=== PATIENT | female | born 1940 | race Caucasian/White ===

== ENCOUNTER 2016-12-10 07:57 | Outpatient (CLI) | payer MEDICARE ==
[2016-12-10 08:46] LABS: HEMOGLOBIN A1C 0.62 g/dL
== END 2016-12-10 07:58 | disposition home or self-care (01) ==
LOC: LAB 07:57
PROVIDERS: ATTEND Physician Assistant Medical
DX: E11.9 Type 2 diabetes mellitus without complications (principal); Z79.899 Other long term (current) drug therapy
CPT/HCPCS: 36415; 82947; 83036

== ENCOUNTER 2017-03-21 07:40 | Outpatient (CLI) | payer MEDICARE ==
[2017-03-21 08:52] LABS: ALBUMIN/GLOBULIN RATIO 1.3 (1.0-2.2); BILIRUBIN,TOTAL 0.9 mg/dL (0.2-1.0); BUN - BLOOD UREA NITROGEN 22 mg/dL (6-20); CALCIUM 9.8 mg/dL (8.5-10.3); CARBON DIOXIDE - CO2 28 mmol/L (21-32); CHLORIDE 103 mmol/L (101-111); CHOLESTEROL 132 mg/dL; CREATININE 0.7 mg/dL (0.4-1.0); GFR - MDRD 82 (>89); GLUCOSE 109 mg/dL (70-100); HDL CHOLESTEROL 44 mg/dL; LDL/HDL RATIO 1.5 (<4.4); POTASSIUM 3.9 mmol/L (3.5-5.0); SODIUM 138 mmol/L (135-145); TRIGLYCERIDES 116 mg/dL; VLDL CHOLESTEROL 23 mg/dL
[2017-03-21 09:11] LABS: BASOPHILS % (AUTO) 0.7 %; EOSINOPHILS # (AUTO) 0.2 10^3/uL (0.0-0.7); EOSINOPHILS % (AUTO) 3.3 %; HCT - HEMATOCRIT 38.3 % (37.0-47.0); HGB - HEMOGLOBIN 12.7 g/dL (12.0-16.0); LYMPHOCYTES # (AUTO) 3.3 10^3/uL (1.5-3.5); LYMPHOCYTES % (AUTO) 49.3 %; MEAN CORPUSCULAR HEMOGLOBIN 29.2 pg (27.0-31.0); MEAN CORPUSCULAR VOLUME 88.2 fL (81.0-99.0); MEAN PLATELET VOLUME 9.3 fL (7.9-10.8); MONOCYTES # (AUTO) 0.6 10^3/uL (0.0-1.0); NEUTROPHILS # (AUTO) 2.5 10^3/uL (1.5-6.6); NEUTROPHILS % (AUTO) 37.7 %; RED BLOOD COUNT 4.34 10^6/uL (4.20-5.40); RED CELL DISTRIBUTION WIDTH 14.4 % (12.0-15.0); UNCORRECTED WHITE BLOOD COUNT 6.7 x10^3/uL; WHITE BLOOD COUNT 6.7 x10^3/uL (4.8-10.8)
[2017-03-21 09:18] LABS: HEMOGLOBIN A1C 0.58 g/dL
== END 2017-03-21 07:41 | disposition home or self-care (01) ==
LOC: LAB 07:40
PROVIDERS: ATTEND Physician Assistant Medical
DX: E55.9 Vitamin D deficiency, unspecified (principal); Z79.899 Other long term (current) drug therapy; E11.9 Type 2 diabetes mellitus without complications; E83.52 Hypercalcemia; E78.5 Hyperlipidemia, unspecified; I10 Essential (primary) hypertension
CPT/HCPCS: 36415; 80053; 80061; 82306; 83036; 84443; 85025

== ENCOUNTER 2017-04-09 10:29 | Outpatient (CLI) | payer MEDICARE ==
--- NOTE | 2017-04-10 14:03 | Mammography Report ---
DIGITAL SCREENING MAMMOGRAM: 04/09/2017 CLINICAL INDICATION: A 76-year-old nulliparous patient with family history of breast cancer, history of benign left breast biopsy, for screening. COMPARISON: 03/2016, 03/2015, 03/2014, 03/2013, 03/2012, 03/2010. TECHNIQUE: Routine CC and MLO projections were obtained of the breasts. FINDINGS: The breasts again demonstrate heterogeneously dense fibroglandular parenchyma bilaterally. Coarse and punctate, typically benign calcifications are present. No suspicious masses, clustered mi crocalcifications, or regions of architectural distortion are identified. IMPRESSION: BENIGN FINDINGS. RECOMMENDATION: ROUTINE ANNUAL SCREENING UNLESS OTHERWISE CLINICALLY INDICATED. BIRADS CATEGORY 2-BENIGN FINDINGS. STANDARD QUALIFYING STATEMENTS 1. This examination was reviewed with the aid of Computer-Aided Detection (CAD). 2. A negative or benign imaging report should not delay biopsy if clinically suspicious findings are present. Consider surgical consultation if warranted. More than 5% of cancers are not identified by i maging. 3. Dense breasts may obscure an underlying neoplasm. JOB #: [id number] EXT JOB #:[id number]
== END 2017-04-09 10:30 | disposition home or self-care (01) ==
LOC: DI 10:29
PROVIDERS: ATTEND Physician Assistant Medical
DX: Z12.31 Encounter for screening mammogram for malignant neoplasm of breast (principal); Z80.3 Family history of malignant neoplasm of breast
CPT/HCPCS: 77067

== ENCOUNTER 2018-02-18 07:55 | Outpatient (CLI) | payer MEDICARE ==
[2018-02-18 08:45] LABS: HB2 TOTAL 11.3 g/dL; HEMOGLOBIN A1C 0.54 g/dL; HEMOGLOBIN A1C % 6.5 % (4.6-6.2)
== END 2018-02-18 07:56 | disposition home or self-care (01) ==
LOC: LAB 07:55
PROVIDERS: ATTEND Physician Assistant Medical
DX: E11.9 Type 2 diabetes mellitus without complications (principal); Z79.899 Other long term (current) drug therapy
CPT/HCPCS: 36415; 82947; 83036

== ENCOUNTER 2018-03-13 07:52 | Outpatient (CLI) | payer MEDICARE ==
[2018-03-13 08:16] LABS: BASOPHILS % (AUTO) 0.8 %; EOSINOPHILS # (AUTO) 0.2 10^3/uL (0.0-0.7); EOSINOPHILS % (AUTO) 3.8 %; HGB - HEMOGLOBIN 10.6 g/dL (12.0-16.0); LYMPHOCYTES # (AUTO) 2.8 10^3/uL (1.5-3.5); LYMPHOCYTES % (AUTO) 45.1 %; MEAN CORPUSCULAR HEMOGLOBIN 26.4 pg (27.0-31.0); MEAN CORPUSCULAR HGB CONC 32.7 g/dL (32.0-36.0); MEAN CORPUSCULAR VOLUME 80.6 fL (81.0-99.0); MONOCYTES # (AUTO) 0.6 10^3/uL (0.0-1.0); MONOCYTES % (AUTO) 9.3 %; NEUTROPHILS # (AUTO) 2.5 10^3/uL (1.5-6.6); PLT - PLATELET COUNT 302 10^3/uL (130-450); RED BLOOD COUNT 4.02 10^6/uL (4.20-5.40); WHITE BLOOD COUNT 6.1 x10^3/uL (4.8-10.8)
[2018-03-13 09:21] LABS: ALBUMIN 4.3 g/dL (3.2-5.5); ALBUMIN/GLOBULIN RATIO 1.3 (1.0-2.2); ALKALINE PHOSPHATASE 67 IU/L (42-121); ALT ALANINE AMINOTRANSFERASE 18 IU/L (10-60); AST ASPARTATE AMINOTRANSFERASE 22 IU/L (10-42); BILIRUBIN,TOTAL 0.6 mg/dL (0.2-1.0); BUN - BLOOD UREA NITROGEN 24 mg/dL (6-20); CALCIUM 9.6 mg/dL (8.5-10.3); CARBON DIOXIDE - CO2 26 mmol/L (21-32); CHLORIDE 106 mmol/L (101-111); CHOL/HDL RATIO 3.1 (<4.4); CHOLESTEROL 119 mg/dL; CREATININE 0.7 mg/dL (0.4-1.0); GFR - MDRD 82 (>89); GLUCOSE 119 mg/dL (70-100); HDL CHOLESTEROL 38 mg/dL; LDL CHOLESTEROL,CALCULATED 56 mg/dL; LDL/HDL RATIO 1.5 (<4.4); SODIUM 140 mmol/L (135-145); TOTAL PROTEIN 7.6 g/dL (6.7-8.2); VLDL CHOLESTEROL 25 mg/dL
== END 2018-03-13 07:53 | disposition home or self-care (01) ==
LOC: LAB 07:52
PROVIDERS: ATTEND Physician Assistant Medical
DX: E55.9 Vitamin D deficiency, unspecified (principal); Z79.899 Other long term (current) drug therapy; E78.2 Mixed hyperlipidemia; I10 Essential (primary) hypertension; E11.9 Type 2 diabetes mellitus without complications
CPT/HCPCS: 36415; 80053; 80061; 82306; 83721; 84443; 85025

== ENCOUNTER 2018-03-17 11:25 | Outpatient (CLI) | payer MEDICARE ==
[2018-03-17 14:48] LABS: MEAN RETIC VALUE 114.8; RED BLOOD COUNT 4.18 10^6/uL (4.20-5.40)
== END 2018-03-17 11:26 | disposition home or self-care (01) ==
LOC: LAB.R 11:25
PROVIDERS: ATTEND Physician Assistant Medical
DX: D64.9 Anemia, unspecified (principal)
CPT/HCPCS: 82607; 82728; 83010; 85044; 86880

== ENCOUNTER 2018-04-21 08:46 | Outpatient (CLI) | payer MEDICARE ==
--- NOTE | 2018-04-22 10:54 | DEXA Report ---
Reason: POSTMENOPAUSAL Procedure Date: 04/21/2018 Accession Number: [id number] / [id number] Procedure: DEX - Dexa Spine and/or Hip CPT Code: FULL RESULT: EXAM: Dexa Spine and/or Hip DATE: 04/21/2018 9:18 AM CLINICAL HISTORY: POSTMENOPAUSAL TECHNIQUE: Dual energy x-ray absorptiometry (DXA) was performed on a [employer] System. Regions measured are the AP Spine, femoral neck, and if needed forearm. COMPARISON: 03/29/2016. In accordance with the International Society for Clinical Densitometry (ISCD) guidelines, data from previous exams may be reanalyzed using current recommendations and techniques. This is done to allow a more accurate basis for comparison with the current study. FINDINGS: The data for the lumbar spine is as follows: BMD (g/cm/cm) T-SCORE Z-SCORE REGION L1 0.922 -1.7 -0.3 L2 0.921 -2.3 -0.9 L3 1.078 -1.0 0.5 L4 1.181 -0.2 1.3 TOTAL 1.045 -1.1 0.3 NOTE: All evaluable vertebrae are used for classification The data for the hip is as follows: BMD (g/cm/cm) T-SCORE Z-SCORE REGION Neck 0.791 -1.8 0.0 TOTAL 0.844 -1.3 0.3 NOTE: The femoral neck or total proximal femur, whichever is lowest, is used for classification. DXA RESULTS SUMMARY: Spine SCAN DATE AGE BMD CHANGE VS CHANGE VS PREVIOUS PREVIOUS % 6/21/2018 [age] 10.045 0.049* 4.9* 03/29/2016 [age] 0[age]996 * Denotes significant change at the 95% confidence level. Denotes dissimilar scan types or analysis methods. DXA RESULTS SUMMARY: Hip SCAN DATE AGE BMD CHANGE VS CHANGE VS PREVIOUS PREVIOUS % 04[age]21/2018 [age] 0.844 -0.022 -2.5 03/29/2016 [age] 0.866 * Denotes significant change at the 95% confidence level. Denotes dissimilar scan types or analysis methods. IMPRESSION: THE WHO CLASSIFICATION BASED ON THE INTERNATIONAL REFERENCE STANDARD IS OSTEOPENIA. THE FRACTURE RISK IS INCREASED. RECOMMENDATION: Patients with diagnosis of osteoporosis or osteopenia should have regular bone mineral density assessment. For those eligible for Medicare, routine testing is allowed once every 2 years. Testing frequency can be increased for patients who have rapidly progressing disease or for those who are receiving medical therapy to restore bone mass. COMMENT: World Health Organization (WHO) definitions for osteoporosis and osteopenia: NORMAL BMD: T-score at -1.0 or higher, fracture risk is low OSTEOPENIA BMD: T-score between -1.0 and -2.5, fracture risk is increased. OSTEOPOROSIS BMD: T-score at -2.5 or lower, fracture risk is high. National Osteoporosis Foundation recommends: 1. Obtain adequate dietary calcium (at least 1200 mg per day) and vitamin D (400-800 international units per day). 2. Participate, as appropriate, in regular weightbearing and muscle-strengthening exercise. 3. Avoid tobacco use and reduce alcohol and caffeine intake. 4. For more detailed information see the website at www.NOF.org.
== END 2018-04-21 08:47 | disposition home or self-care (01) ==
LOC: DI 08:46
PROVIDERS: ATTEND Physician Assistant Medical
DX: M85.89 Other specified disorders of bone density and structure, multiple sites (principal); Z78.0 Asymptomatic menopausal state
CPT/HCPCS: 77080

== ENCOUNTER 2018-04-21 08:49 | Outpatient (CLI) | payer MEDICARE ==
--- NOTE | 2018-04-22 09:27 | Mammography Report ---
Reason: SCREEN wTOMO Procedure Date: 04/21/2018 Accession Number: [id number] / [id number] Procedure: REYNA - Screening Mammo w/Christiano CPT Code: FULL RESULT: EXAM: Screening Mammo w/Christiano DATE: 04/21/2018 9:54 AM CLINICAL HISTORY: 77 year-old nulliparous with history of left breast biopsy with benign pathology results and family history of breast cancer in the mother around the age of 68. TECHNIQUE: Bilateral CC and MLO views were obtained. COMPARISON: 04/09/2017 03/29/2016 04/21/2015 04/09/2014. FINDINGS: The breasts demonstrate heterogeneously dense fibroglandular parenchyma bilaterally. There are coarse typically benign bilateral calcifications. No suspicious masses, clustered microcalcifications, or regions of architectural distortion are identified. IMPRESSION: Benign findings RECOMMENDATION: Routine annual screening unless otherwise clinically indicated. BIRADS CATEGORY 2: Benign findings STANDARD QUALIFYING STATEMENTS: 1. This examination was not reviewed with the aid of Computer-Aided Detection (CAD). 2. A negative or benign imaging report should not delay biopsy if clinically suspicious findings are present. Consider surgical consultation if warrented. More than 5% of cancers are not identified by imaging. 3. Dense breasts may obscure an underlying neoplasm. 4. This examination was reviewed with the aid of 3D breast imaging (tomosynthesis).
== END 2018-04-21 08:50 | disposition home or self-care (01) ==
LOC: DI 08:49
PROVIDERS: ATTEND Physician Assistant Medical
DX: Z12.31 Encounter for screening mammogram for malignant neoplasm of breast (principal); Z80.3 Family history of malignant neoplasm of breast
CPT/HCPCS: 77063; 77067

== ENCOUNTER 2018-04-28 09:21 | Day surgery (SDC) | payer MEDICARE ==
[2018-04-28] MEDS ORDERED: fentaNYL 100 MCG/2 ML VIAL IVP ONE ×2 (09:22→11:25)
[2018-04-28] MEDS ORDERED: MIDAZOLAM 2 MG/2 ML VIAL IVP ONE ×2 (09:22→11:25)
[2018-04-28] MEDS ORDERED: LACTATED RINGERS 1,000 ML IV ONE (10:02)
[2018-04-28] MEDS ORDERED: LIDO GARGLE 30 ML BOTTLE ONE (10:50)
[2018-04-28] MEDS ORDERED: LIDO GARGLE 30 ML BOTTLE TOP ONE (11:30)
[2018-04-28 12:30] VITALS: BP 118/53
== END 2018-04-28 09:22 | disposition home or self-care (01) ==
LOC: SDS 09:21
PROVIDERS: ATTEND Surgery
PROC: 0DB58ZX Excision of Esophagus, Via Natural or Artificial Opening Endoscopic, Diagnostic (ICD-10-PCS; 2018-04-28)
PROC: 0DB98ZX Excision of Duodenum, Via Natural or Artificial Opening Endoscopic, Diagnostic (ICD-10-PCS; principal; 2018-04-28 11:30)
DX: R10.13 Epigastric pain (principal); K20.9 Esophagitis, unspecified; K44.9 Diaphragmatic hernia without obstruction or gangrene; I10 Essential (primary) hypertension; E78.5 Hyperlipidemia, unspecified; E11.9 Type 2 diabetes mellitus without complications; R12 Heartburn
CPT/HCPCS: 43239; A9270; J7120

== ENCOUNTER 2018-05-30 07:48 | Outpatient (CLI) | payer MEDICARE ==
[2018-05-30 08:07] LABS: BASOPHILS # (AUTO) 0.1 10^3/uL (0.0-0.1); BASOPHILS % (AUTO) 1.1 %; EOSINOPHILS # (AUTO) 0.2 10^3/uL (0.0-0.7); EOSINOPHILS % (AUTO) 3.4 %; HGB - HEMOGLOBIN 13.2 g/dL (12.0-16.0); MEAN CORPUSCULAR HGB CONC 33.2 g/dL (32.0-36.0); MEAN CORPUSCULAR VOLUME 87.5 fL (81.0-99.0); MONOCYTES # (AUTO) 0.6 10^3/uL (0.0-1.0); MONOCYTES % (AUTO) 8.4 %; NEUTROPHILS # (AUTO) 2.8 10^3/uL (1.5-6.6); NEUTROPHILS % (AUTO) 42.1 %; PLT - PLATELET COUNT 245 10^3/uL (130-450); RED BLOOD COUNT 4.55 10^6/uL (4.20-5.40); RED CELL DISTRIBUTION WIDTH 21.1 % (12.0-15.0); WHITE BLOOD COUNT 6.7 x10^3/uL (4.8-10.8)
[2018-05-30 08:42] LABS: PLATELET ESTIMATE, MANUAL NORMAL (130-450,000) (NORMAL); PLATELET MORPHOLOGY 1+ LARGE PLATELETS (NORMAL); RBC MORPHOLOGY (MULTIPLE) 1+ ANISOCYTOSIS (NORMAL)
[2018-05-31 18:37] LABS: HB2 TOTAL 13.6 g/dL; HEMOGLOBIN A1C 0.62 g/dL; HEMOGLOBIN A1C % 6.3 % (4.6-6.2)
== END 2018-05-30 07:49 | disposition home or self-care (01) ==
LOC: LAB 07:48
PROVIDERS: ATTEND Physician Assistant Medical
DX: D64.9 Anemia, unspecified (principal); Z79.899 Other long term (current) drug therapy; E11.9 Type 2 diabetes mellitus without complications
CPT/HCPCS: 36415; 82728; 82947; 83036; 85025

== ENCOUNTER 2018-11-21 13:11 | Outpatient (CLI) | payer MEDICARE | END 2018-11-21 13:12 | disposition home or self-care (01) | LOC: RT 13:11 | PROVIDERS: ATTEND Nurse Practitioner | DX: J45.909 Unspecified asthma, uncomplicated (principal) | CPT/HCPCS: 94010 ==

== ENCOUNTER 2019-03-06 07:35 | Outpatient (CLI) | payer MEDICARE ==
[2019-03-06 08:15] LABS: HB2 TOTAL 14.4 g/dL; HEMOGLOBIN A1C 0.63 g/dL; HEMOGLOBIN A1C % 6.2 % (4.6-6.2)
[2019-03-06 08:21] LABS: ALBUMIN 4.6 g/dL (3.2-5.5); ALBUMIN/GLOBULIN RATIO 1.4 (1.0-2.2); ALKALINE PHOSPHATASE 66 IU/L (42-121); ALT ALANINE AMINOTRANSFERASE 26 IU/L (10-60); AST ASPARTATE AMINOTRANSFERASE 22 IU/L (10-42); BILIRUBIN,TOTAL 0.9 mg/dL (0.2-1.0); BUN - BLOOD UREA NITROGEN 17 mg/dL (6-20); CALCIUM 9.9 mg/dL (8.5-10.3); CARBON DIOXIDE - CO2 28 mmol/L (21-32); CHLORIDE 105 mmol/L (101-111); CHOL/HDL RATIO 3.8 (<4.4); CHOLESTEROL 146 mg/dL; CREATININE 0.8 mg/dL (0.4-1.0); GFR - MDRD 70 (>89); GLUCOSE 118 mg/dL (70-100); HDL CHOLESTEROL 38 mg/dL; LDL CHOLESTEROL,CALCULATED 75 mg/dL; SODIUM 142 mmol/L (135-145); TOTAL PROTEIN 7.8 g/dL (6.7-8.2); VLDL CHOLESTEROL 33 mg/dL
[2019-03-06 08:29] LABS: BASOPHILS % (AUTO) 0.6 %; EOSINOPHILS # (AUTO) 0.4 10^3/uL (0.0-0.7); EOSINOPHILS % (AUTO) 5.9 %; HGB - HEMOGLOBIN 13.6 g/dL (12.0-16.0); LYMPHOCYTES # (AUTO) 3.1 10^3/uL (1.5-3.5); LYMPHOCYTES % (AUTO) 46.5 %; MEAN CORPUSCULAR HEMOGLOBIN 31.8 pg (27.0-31.0); MEAN CORPUSCULAR VOLUME 96.3 fL (81.0-99.0); MEAN PLATELET VOLUME 10.8 fL (7.9-10.8); MONOCYTES # (AUTO) 0.6 10^3/uL (0.0-1.0); MONOCYTES % (AUTO) 8.4 %; NEUTROPHILS # (AUTO) 2.6 10^3/uL (1.5-6.6); NEUTROPHILS % (AUTO) 38.3 %; PLT - PLATELET COUNT 256 10^3/uL (130-450); RED BLOOD COUNT 4.28 10^6/uL (4.20-5.40); RED CELL DISTRIBUTION WIDTH 13.1 % (12.0-15.0); WHITE BLOOD COUNT 6.7 x10^3/uL (4.8-10.8)
== END 2019-03-06 07:36 | disposition home or self-care (01) ==
LOC: LAB 07:35
PROVIDERS: ATTEND Nurse Practitioner
DX: D64.9 Anemia, unspecified (principal); Z79.899 Other long term (current) drug therapy; E55.9 Vitamin D deficiency, unspecified; E78.2 Mixed hyperlipidemia; I10 Essential (primary) hypertension; E11.9 Type 2 diabetes mellitus without complications
CPT/HCPCS: 36415; 80053; 80061; 82306; 83036; 83721; 84443; 85025

== ENCOUNTER 2019-04-16 06:38 | Day surgery (SDC) | payer MEDICARE ==
[2019-04-16] MEDS ORDERED: LACTATED RINGERS 1,000 ML IV ONE (06:42)
[2019-04-16] MEDS ORDERED: LIDO GARGLE 30 ML BOTTLE ONE (08:41)
[2019-04-16] MEDS ORDERED: fentaNYL 100 MCG/2 ML VIAL IVP ONE (08:44)
[2019-04-16] MEDS ORDERED: MIDAZOLAM 2 MG/2 ML VIAL IVP ONE (08:44)
[2019-04-16] MEDS ORDERED: LIDO GARGLE 30 ML BOTTLE PO ONE (08:49)
[2019-04-16 09:16] VITALS: BP 126/61
== END 2019-04-16 06:39 | disposition home or self-care (01) ==
LOC: SDS 06:38
PROVIDERS: ATTEND Surgery
PROC: 0DB38ZX Excision of Lower Esophagus, Via Natural or Artificial Opening Endoscopic, Diagnostic (ICD-10-PCS; 2019-04-16)
PROC: 0DB48ZX Excision of Esophagogastric Junction, Via Natural or Artificial Opening Endoscopic, Diagnostic (ICD-10-PCS; principal; 2019-04-16 08:15)
DX: K22.70 Barrett's esophagus without dysplasia (principal); K44.9 Diaphragmatic hernia without obstruction or gangrene; K31.7 Polyp of stomach and duodenum; K21.9 Gastro-esophageal reflux disease without esophagitis; R13.10 Dysphagia, unspecified; I10 Essential (primary) hypertension; E11.9 Type 2 diabetes mellitus without complications; Z79.899 Other long term (current) drug therapy; Z79.84 Long term (current) use of oral hypoglycemic drugs
CPT/HCPCS: 43239; A9270; J7120

== ENCOUNTER 2019-04-21 10:14 | Outpatient (CLI) | payer MEDICARE ==
--- NOTE | 2019-04-21 11:47 | Mammography Report ---
Reason: SCREENING MAMMO Procedure Date: 04/21/2019 Accession Number: [id number] / [id number] Procedure: REYNA - Screening Mammo w/Christiano CPT Code: FULL RESULT: EXAM: Screening Mammo w/Christiano DATE: 04/21/2019 10:51 AM CLINICAL HISTORY: Routine screening. History of left breast biopsy. TECHNIQUE: (B) - Bilateral CC and MLO views were obtained. COMPARISON: 04/21/2018, 04/09/2017, 03/29/2016, 04/21/2015, 05/10/2014, 03/24/2013, 04/09/2012, 04/09/2011, and 04/13/2010 PARENCHYMAL PATTERN: (D) - The breasts demonstrate heterogeneously dense fibroglandular parenchyma bilaterally. FINDINGS: No significant interval change. There are no suspicious masses, calcifications, or new areas of distortion. On the left CC projection an area of architectural distortion in the lateral breast corresponds to a biopsy scar on prior mammograms. IMPRESSION: Negative examination. BI-RADS category 1. RECOMMENDATION: (ANNUAL) - Recommend routine annual screening mammography. BI-RADS CATEGORY: (1) - Negative. STANDARD QUALIFYING STATEMENTS: 1. This examination was not reviewed with the aid of Computer-Aided Detection (CAD). 2. A negative or benign imaging report should not preclude biopsy if clinically suspicious findings are present. 3. Dense breasts may obscure an underlying neoplasm. 4. This examination was reviewed with the aid of 3D breast imaging (tomosynthesis).
== END 2019-04-21 10:15 | disposition home or self-care (01) ==
LOC: DI 10:14
DX: Z12.31 Encounter for screening mammogram for malignant neoplasm of breast (principal)
CPT/HCPCS: 77063; 77067

== ENCOUNTER 2019-11-27 10:12 | Outpatient (CLI) | payer MEDICARE ==
[2019-11-27 12:15] LABS: ALBUMIN 4.5 g/dL (3.2-5.5); ALBUMIN/GLOBULIN RATIO 1.3 (1.0-2.2); BILIRUBIN,TOTAL 0.6 mg/dL (0.2-1.0); CREATININE 0.8 mg/dL (0.4-1.0)
[2019-11-27 12:19] LABS: HB2 TOTAL 14.1 g/dL; HEMOGLOBIN A1C 0.63 g/dL; HEMOGLOBIN A1C % 6.2 % (4.6-6.2)
== END 2019-11-27 23:59 | disposition home or self-care (01) ==
LOC: LAB.WCP 10:12
PROVIDERS: ATTEND Nurse Practitioner
DX: E11.9 Type 2 diabetes mellitus without complications (principal); R25.2 Cramp and spasm
CPT/HCPCS: 36415; 80053; 83036

== ENCOUNTER 2020-02-12 09:23 | Outpatient (CLI) | payer MEDICARE ==
--- NOTE | 2020-02-12 13:58 | CT Report ---
PROCEDURE: LOWER EXTREMITY WO - RT INDICATIONS: RIGHT ANKLE PAIN TECHNIQUE: Noncontrast 3 mm axial sections acquired of the right ankle, with coronal and sagittal reformats. COMPARISON: None. FINDINGS: Image quality: Diagnostic. Regarding artifacts from ankle joint, where it is seen.. Bones: Patient is status post tibiotalar joint osteoplasty with significant being hardening artifact s obscuring evaluation of the osseous structures. No gross acute fracture or dislocation. No suspicio us intraosseous lesions. No evidence of hardware loosening or failure. Osteoarthritic changes are not ed in the subtalar joint, talonavicular joint and calcaneocuboid joint. Soft tissues: There is no significant joint effusion. No gross soft tissue abnormality is seen. The extensor, flexor, and peroneus tendons shows no evidence of full-thickness rupture. Distal Achilles t endinosis at its posterior calcaneal insertion is seen. No full-thickness Achilles tendon rupture. Pl janie fascial is grossly intact. IMPRESSION: 1. 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 No evidence of hardware comp lication. No acute fracture or dislocation. 2. Mild midfoot and hindfoot joint osteoarthritis. 3. Suggestion of distal calcaneal tendinosis at its posterior calcaneal insertion. No full-thickness ankle tendon rupture. Reviewed by: Dylan Cabrera MD on 02/12/2020 1:57 PM PDT Approved by: Dylan Cabrera MD on 02/12/2020 1:57 PM PDT Station ID: [id number]
== END 2020-02-12 09:24 | disposition home or self-care (01) ==
LOC: DI 09:23
PROVIDERS: ATTEND Podiatrist Foot & Ankle Surgery
DX: M19.071 Primary osteoarthritis, right ankle and foot (principal)

== ENCOUNTER 2020-03-16 07:48 | Outpatient (CLI) | payer MEDICARE ==
[2020-03-16 08:34] LABS: ALBUMIN 4.5 g/dL (3.2-5.5); ALBUMIN/GLOBULIN RATIO 1.3 (1.0-2.2); ALKALINE PHOSPHATASE 72 IU/L (42-121); ALT ALANINE AMINOTRANSFERASE 26 IU/L (10-60); AST ASPARTATE AMINOTRANSFERASE 22 IU/L (10-42); BILIRUBIN,TOTAL 0.6 mg/dL (0.2-1.0); BUN - BLOOD UREA NITROGEN 22 mg/dL (6-20); CALCIUM 9.9 mg/dL (8.5-10.3); CARBON DIOXIDE - CO2 30 mmol/L (21-32); CHLORIDE 102 mmol/L (101-111); CHOL/HDL RATIO 3.2 (<4.4); CHOLESTEROL 139 mg/dL; CREATININE 0.9 mg/dL (0.4-1.0); GLUCOSE 118 mg/dL (70-100); HDL CHOLESTEROL 43 mg/dL; LDL CHOLESTEROL,CALCULATED 68 mg/dL; LDL/HDL RATIO 1.6 (<4.4); SODIUM 139 mmol/L (135-145); TOTAL PROTEIN 7.9 g/dL (6.7-8.2); VLDL CHOLESTEROL 28 mg/dL
[2020-03-16 08:56] LABS: BASOPHILS % (AUTO) 0.8 %; HGB - HEMOGLOBIN 14.1 g/dL (12.0-16.0); LYMPHOCYTES % (AUTO) 45.7 %; MEAN CORPUSCULAR HEMOGLOBIN 33.9 pg (27.0-31.0); MEAN CORPUSCULAR HGB CONC 34.9 g/dL (32.0-36.0); MEAN CORPUSCULAR VOLUME 97.1 fL (81.0-99.0); MEAN PLATELET VOLUME 11.3 fL (7.9-10.8); NEUTROPHILS % (AUTO) 41.8 %; PLT - PLATELET COUNT 306 10^3/uL (130-450); RED BLOOD COUNT 4.16 10^6/uL (4.20-5.40); WHITE BLOOD COUNT 7.4 x10^3/uL (4.8-10.8)
[2020-03-16 09:00] LABS: ABNORMAL LYMPHS % (MANUAL) 0 %; BAND NEUTROPHILS % (MANUAL) 0 %
[2020-03-16 09:58] LABS: EOSINOPHILS # (MANUAL) 0.3 10^3/uL (0-0.7); LYMPHOCYTES # (MANUAL) 3.7 10^3/uL (1.5-3.5); LYMPHOCYTES % (MANUAL) 50 %; MONOCYTES # (MANUAL) 0.4 10^3/uL (0.0-1.0); PLATELET ESTIMATE, MANUAL NORMAL (130-450,000) (NORMAL); PLATELET MORPHOLOGY NORMAL APPEARANCE (NORMAL); RBC MORPHOLOGY (MULTIPLE) NORMAL APPEARANCE (NORMAL)
[2020-03-16 09:59] LABS: DIFFERENTIAL COMMENT MANUAL DIFFERENTIAL
[2020-03-16 12:36] LABS: HEMOGLOBIN A1c% 6.5 % (4.27-6.07)
[2020-03-16 13:48] LABS: CREATININE,URINE 74.1 mg/dL; MICROALBUM/CREATININE RATIO,UR 2.7 ug/mg (<30.0); MICROALBUMIN,URINE 0.2 mg/dL (0-300.0)
== END 2020-03-16 07:49 | disposition home or self-care (01) ==
LOC: LAB 07:48
PROVIDERS: ATTEND Nurse Practitioner
DX: E11.9 Type 2 diabetes mellitus without complications (principal); I10 Essential (primary) hypertension; E78.2 Mixed hyperlipidemia; D64.9 Anemia, unspecified
CPT/HCPCS: 36415; 80053; 80061; 82043; 82570; 83036; 83721; 84443; 85025

== ENCOUNTER 2020-04-20 06:32 | Day surgery (SDC) | payer MEDICARE ==
[2020-04-20] MEDS ORDERED: fentaNYL 250 MCG/5 ML VIAL IVP ONE (06:33)
[2020-04-20] MEDS ORDERED: MIDAZOLAM 2 MG/2 ML VIAL IVP ONE (06:33)
[2020-04-20] MEDS ORDERED: LACTATED RINGERS 1,000 ML IV ONE ×2 (06:52→08:21)
[2020-04-20] MEDS ORDERED: LIDO GARGLE 30 ML BOTTLE ONE (07:22)
[2020-04-20] MEDS ORDERED: LIDO GARGLE 30 ML BOTTLE PO ONE (07:40)
[2020-04-20] MEDS ORDERED: BENZOCAINE/TETRACAINE/BUTAMBEN 20 GM TOP ONE (07:41)
[2020-04-20 08:51] VITALS: BP 121/75
== END 2020-04-20 06:33 | disposition home or self-care (01) ==
LOC: SDS 06:32
PROVIDERS: ATTEND Surgery
PROC: 0DJD8ZZ Inspection of Lower Intestinal Tract, Via Natural or Artificial Opening Endoscopic (ICD-10-PCS; principal; 2020-04-20 07:30)
PROC: 0DB48ZX Excision of Esophagogastric Junction, Via Natural or Artificial Opening Endoscopic, Diagnostic (ICD-10-PCS; 2020-04-20 07:30)
DX: Z12.11 Encounter for screening for malignant neoplasm of colon (principal); Z86.010 Personal history of colon polyps; K57.30 Diverticulosis of large intestine without perforation or abscess without bleeding; K22.70 Barrett's esophagus without dysplasia; K64.8 Other hemorrhoids; K31.7 Polyp of stomach and duodenum; K44.9 Diaphragmatic hernia without obstruction or gangrene; K21.9 Gastro-esophageal reflux disease without esophagitis; E10.9 Type 1 diabetes mellitus without complications; Z79.84 Long term (current) use of oral hypoglycemic drugs
CPT/HCPCS: 43239; 88305; A9270; G0105; J3010; J7120

== ENCOUNTER 2020-05-06 11:15 | Outpatient (CLI) | payer MEDICARE | END 2020-05-06 11:16 | disposition home or self-care (01) | LOC: DI.N 11:15 | PROVIDERS: ATTEND Nurse Practitioner | DX: Z53.9 Procedure and treatment not carried out, unspecified reason (principal) ==

== ENCOUNTER 2020-05-12 08:57 | Outpatient (CLI) | payer MEDICARE ==
--- NOTE | 2020-05-13 13:53 | Mammography Report ---
BILATERAL DIGITAL SCREENING MAMMOGRAM 3D/2D: 05/12/2020 CLINICAL: Routine screening. Mother with postmenopausal breast cancer. Comparison is made to exams dated: 04/21/2019 mammogram, 04/21/2018 mammogram, 04/09/2017 mammogram, 03/29/2016 mammogram, 04/21/2015 mammogram, and 04/09/2014 mammogram - [facility]. The tissue of both breasts is predominantly fatty. No significant masses, calcifications, or other findings are seen in either breast. There has been no significant interval change. IMPRESSION: NEGATIVE There is no mammographic evidence of malignancy. A 1 year screening mammogram is recommended. This exam was interpreted at Station ID: [id number]. NOTE: For mammograms, a report in lay terms will be sent to the patient. Approximately 15% of breast malignancies will not be visualized mammographically. In the management of a palpable breast mass, a negative mammogram must not discourage biopsy of a clinically suspicious lesion. Electronically Signed By: Baldev Girard M.D., jr/shana:05/12/2020 09:49:01 ACR BI-RADS Category 1: Negative 3341F PARENCHYMAL PATTERN: (F) - The breast(s) demonstrate(s) diffuse fatty replacement. BI-RADS CATEGORY: (1) - 1 RECOMMENDATION: (ANNUAL) - Recommend routine annual screening mammography. [id number] 1 year screening LATERALITY: (B)
== END 2020-05-12 08:58 | disposition home or self-care (01) ==
LOC: DI 08:57
PROVIDERS: ATTEND Nurse Practitioner
DX: Z12.31 Encounter for screening mammogram for malignant neoplasm of breast (principal); Z80.3 Family history of malignant neoplasm of breast
CPT/HCPCS: 77063; 77067

== ENCOUNTER 2020-11-04 08:00 | Outpatient (CLI) | payer MEDICARE ==
[2020-11-04 08:29] LABS: CALCIUM 10.3 mg/dL (8.5-10.3); CREATININE 0.9 mg/dL (0.4-1.0); POTASSIUM 3.9 mmol/L (3.5-5.0)
[2020-11-04 12:03] LABS: ESTIMATED AVERAGE GLUCOSE 137 mg/dL (70-100); HEMOGLOBIN A1c% 6.4 % (4.27-6.07)
== END 2020-11-04 08:01 | disposition home or self-care (01) ==
LOC: LAB 08:00
PROVIDERS: ATTEND Nurse Practitioner Family
DX: E11.9 Type 2 diabetes mellitus without complications (principal)
CPT/HCPCS: 36415; 80048; 83036

== ENCOUNTER 2021-01-24 07:46 | Outpatient (CLI) | payer MEDICARE ==
--- NOTE | 2021-01-24 15:03 | XRAY Report ---
PROCEDURE: Ankle 3 View RT INDICATIONS: RIGHT ANKLE TAA ISSUE WITH IMPLANT TECHNIQUE: 3 weightbearing views of the ankle were acquired. COMPARISON: Correlation is made with prior ankle CT, 02/12/2020 FINDINGS: Bones: Ankle arthroplasty hardware can be seen. There is subtle lucency seen involving the tibial co mponent, which is best demonstrated on the lateral image. No acute fractures or dislocations. There is a remote, healed tibial shaft fracture. Ankle mortise i s normally aligned. No suspicious bony lesions. Incidental note is made of an enthesophyte at the Achilles insertion. Soft tissues: No tibiotalar joint effusion. Achilles tendon appears normal. IMPRESSION: Ankle arthroplasty hardware seen. There is subtle lucency seen adjacent to the tibial component of the hardware, which is suspicious fo r early loosening change. The degree of lucency is similar to the prior CT, although is somewhat obsc ured on the CT by streak artifact. Reviewed by: Dawood Levy MD on 01/24/2021 2:01 PM [place] Approved by: Dawood Levy MD on 01/24/2021 2:01 PM [place] Station ID: [id number]
== END 2021-01-24 07:47 | disposition home or self-care (01) ==
LOC: DI 07:46
PROVIDERS: ATTEND Podiatrist Foot & Ankle Surgery
DX: R93.6 Abnormal findings on diagnostic imaging of limbs (principal); Z96.661 Presence of right artificial ankle joint

== ENCOUNTER 2021-02-28 07:38 | Outpatient (CLI) | payer MEDICARE ==
[2021-02-28 08:00] LABS: BASOPHILS % (AUTO) 0.6 %; EOSINOPHILS # (AUTO) 0.3 10^3/uL (0.0-0.7); EOSINOPHILS % (AUTO) 3.7 %; HGB - HEMOGLOBIN 13.7 g/dL (12.0-16.0); LYMPHOCYTES # (AUTO) 3.4 10^3/uL (1.5-3.5); LYMPHOCYTES % (AUTO) 48.7 %; MEAN CORPUSCULAR HEMOGLOBIN 33.2 pg (27.0-31.0); MEAN CORPUSCULAR HGB CONC 34.3 g/dL (32.0-36.0); MEAN CORPUSCULAR VOLUME 96.9 fL (81.0-99.0); MEAN PLATELET VOLUME 10.2 fL (7.9-10.8); MONOCYTES # (AUTO) 0.6 10^3/uL (0.0-1.0); MONOCYTES % (AUTO) 7.8 %; NEUTROPHILS # (AUTO) 2.7 10^3/uL (1.5-6.6); NEUTROPHILS % (AUTO) 38.8 %; PLT - PLATELET COUNT 249 10^3/uL (130-450); RED BLOOD COUNT 4.13 10^6/uL (4.20-5.40); RED CELL DISTRIBUTION WIDTH 12.9 % (12.0-15.0); WHITE BLOOD COUNT 7.1 x10^3/uL (4.8-10.8)
[2021-02-28 08:17] LABS: CREATININE,URINE 127.6 mg/dL; MICROALBUM/CREATININE RATIO,UR 3.1 ug/mg (<30.0); MICROALBUMIN,URINE 0.4 mg/dL (0-300.0)
[2021-02-28 08:20] LABS: ALBUMIN 4.6 g/dL (3.2-5.5); ALBUMIN/GLOBULIN RATIO 1.4 (1.0-2.2); ALKALINE PHOSPHATASE 71 IU/L (42-121); ALT ALANINE AMINOTRANSFERASE 23 IU/L (10-60); AST ASPARTATE AMINOTRANSFERASE 20 IU/L (10-42); BILIRUBIN,TOTAL 0.8 mg/dL (0.2-1.0); BUN - BLOOD UREA NITROGEN 23 mg/dL (6-20); CALCIUM 10.2 mg/dL (8.5-10.3); CARBON DIOXIDE - CO2 29 mmol/L (21-32); CHLORIDE 103 mmol/L (101-111); CHOL/HDL RATIO 3.7 (<4.4); CHOLESTEROL 138 mg/dL; CREATININE 0.7 mg/dL (0.4-1.0); GFR - MDRD 81 (>89); GLUCOSE 124 mg/dL (70-100); HDL CHOLESTEROL 37 mg/dL; LDL CHOLESTEROL,CALCULATED 71 mg/dL; LDL/HDL RATIO 1.9 (<4.4); POTASSIUM 4.2 mmol/L (3.5-5.0); SODIUM 142 mmol/L (135-145); TRIGLYCERIDES 151 mg/dL; VLDL CHOLESTEROL 30 mg/dL
[2021-02-28 08:30] LABS: THYROID STIMULATING HORMONE 4.3 uIU/mL (0.34-5.60)
[2021-02-28 11:57] LABS: ESTIMATED AVERAGE GLUCOSE 143 mg/dL (70-100); HEMOGLOBIN A1c% 6.6 % (4.27-6.07)
== END 2021-02-28 07:39 | disposition home or self-care (01) ==
LOC: LAB 07:38
PROVIDERS: ATTEND Family Medicine
DX: I10 Essential (primary) hypertension (principal); E78.2 Mixed hyperlipidemia; E11.9 Type 2 diabetes mellitus without complications
CPT/HCPCS: 36415; 80053; 80061; 82043; 82570; 83036; 83721; 84443; 85025

== ENCOUNTER 2021-03-23 11:08 | Outpatient (CLI) | payer MEDICARE ==
--- NOTE | 2021-03-23 12:17 | XRAY Report ---
PROCEDURE: Foot 3 View BILAT INDICATIONS: FOOT PAIN, CHRONIC TECHNIQUE: 6 views of the foot were acquired. COMPARISON: Right ankle radiograph dated 01/24/2021 FINDINGS: Bones: There is prior right tibiotalar joint arthroplasty. Mild osteopenia is seen. Moderate bilater al hallux valgus is seen. No acute fracture or dislocation. No gross hardware loosening or failure. R ight worse than left bilateral feet osteoarthritic changes are seen. No fractures or dislocations. N o suspicious bony lesions. Small bilateral dorsal calcaneal enthesophyte is seen. Soft tissues: No tibiotalar joint effusion. Achilles tendon appears normal. IMPRESSION: Osteopenia. No acute fracture or dislocation. Prior right tibiotalar joint arthroplasty without evide nce of hardware complication. Small dorsal calcaneal enthesophytes. Right worse than left osteoarthri tis in bilateral feet.. Moderate bilateral hallux valgus. Reviewed by: Dylan Cabrera MD on 03/23/2021 12:15 PM PDT Approved by: Dylan Cabrera MD on 03/23/2021 12:15 PM PDT Station ID: [id number]
--- NOTE | 2021-03-23 12:18 | XRAY Report ---
PROCEDURE: Wrist 3 View LT INDICATIONS: Left wrist pain TECHNIQUE: 3 views of the wrist were acquired. COMPARISON: None FINDINGS: There is no fracture or dislocation. The scaphoid is intact. Normal scapholunate interval. Normal car pal alignment. Mild osteoarthritic changes at the first CMC. No acute soft tissue findings. IMPRESSION: No acute findings. Reviewed by: Baldev Girard MD on 03/23/2021 12:17 PM PDT Approved by: Baldev Girard MD on 03/23/2021 12:17 PM PDT Station ID: [id number]
== END 2021-03-23 11:09 | disposition home or self-care (01) ==
LOC: DI 11:08
PROVIDERS: ATTEND Family Medicine
DX: M25.532 Pain in left wrist (principal); M85.872 Other specified disorders of bone density and structure, left ankle and foot; M85.871 Other specified disorders of bone density and structure, right ankle and foot; M19.072 Primary osteoarthritis, left ankle and foot; M19.071 Primary osteoarthritis, right ankle and foot; M20.12 Hallux valgus (acquired), left foot; M20.11 Hallux valgus (acquired), right foot; Z96.661 Presence of right artificial ankle joint

== ENCOUNTER 2021-04-24 12:58 | Outpatient (CLI) | payer MEDICARE ==
--- NOTE | 2021-05-08 10:26 | Mammography Report ---
BILATERAL DIGITAL SCREENING MAMMOGRAM 3D/2D: 04/24/2021 CLINICAL: Routine screening. Comparison is made to exams dated: 05/12/2020 mammogram, 04/21/2019 mammogram, 04/21/2018 mammogram, 04/09/2017 mammogram, 03/29/2016 mammogram, and 04/21/2015 mammogram - [facility]. There are scattered fibroglandular elements in both breasts. There are benign post operative findings in the left breast. No significant masses, calcifications, or other findings are seen in either breast. There has been no significant interval change. IMPRESSION: BENIGN There is no mammographic evidence of malignancy. A 1 year screening mammogram is recommended. This exam was interpreted at Station ID: [id number]. NOTE: For mammograms, a report in lay terms will be sent to the patient. Approximately 15% of breast malignancies will not be visualized mammographically. In the management of a palpable breast mass, a negative mammogram must not discourage biopsy of a clinically suspicious lesion. Electronically Signed By: Yuliet heredia/shana:05/05/2021 13:43:35 ACR BI-RADS Category 2: Benign Finding(s) 3342F PARENCHYMAL PATTERN: (A) - The breast(s) demonstrate(s) scattered fibroglandular densities. BI-RADS CATEGORY: (2) - 2 RECOMMENDATION: (ANNUAL) - Recommend routine annual screening mammography. [id number] 1 year screening LATERALITY: (B)
== END 2021-04-24 12:59 | disposition home or self-care (01) ==
LOC: DI 12:58
DX: Z12.31 Encounter for screening mammogram for malignant neoplasm of breast (principal)

== ENCOUNTER 2021-05-03 07:58 | Day surgery (SDC) | payer MEDICARE ==
[2021-05-03] MEDS ORDERED: LACTATED RINGERS 1,000 ML IV ONE ×2 (08:35→09:27)
[2021-05-03] MEDS ORDERED: PROPOFOL 200 MG/20 ML VIAL IVP ONE (08:36)
[2021-05-03] MEDS ORDERED: MIDAZOLAM 2 MG/2 ML VIAL ONE (08:36)
[2021-05-03] MEDS ORDERED: fentaNYL 100 MCG/2 ML VIAL ONE (08:36)
--- NOTE | 2021-05-03 08:44 | ANESTHESIA ---
Pre-Anesthesia VS, & Labs - Diagnosis Barretts esophagus - Procedure EGD w/biopsies Vital Signs: Temp Pulse Resp BP Pulse Ox 36.5 C 85 16 159/73 H 99 05/03/21 08:10 05/03/21 08:10 05/03/21 08:10 05/03/21 08:10 05/03/21 08:10 Height: 5 ft 5.5 in Weight (kg): 72.6 kg Body Mass Index: 26.2 BMI Classification: Overweight - NPO >8 hours - Is Patient ?: No - Lab Results Current Lab Results: Laboratory Tests 05/03/21 08:32: POC Whole Bld Glucose 137 H Lab results reviewed: Yes Home Medications and Allergies Iron,Carbonyl [Iron Chews] 45 mg PO 1-2XD 04/28/18 Metformin HCl [Metformin HCl ER] 500 mg PO DAILY 04/28/18 Omeprazole Magnesium [Prilosec] 10 mg PO DAILY 04/28/18 Pravastatin Sodium [Pravachol] 40 mg PO DAILY 04/28/18 lisinopriL [Zestril] 5 mg PO DAILY 04/28/18 Aspirin 81 mg PO DAILY 04/15/19 Ascorbic Acid [Vitamin C] 500 mg PO 04/20/20 Cholecalciferol (Vitamin D3) [Vitamin D3] 50 mcg PO 04/20/20 Fluticasone [Flonase] 1 sprays BIJAN DAILY 04/20/20 Magnesium 250 mg PO DAILY 04/20/20 Allergies/Adverse Reactions: Allergies Allergy/AdvReac Type Severity Reaction Status Date / Time codeine Allergy Hives Verified 04/28/18 10:12 Sulfa (Sulfonamide Allergy Hives Verified 04/28/18 10:12 Antibiotics) Anes History & Medical History - Anesthetic History Anesthesia Complications: reports: No previous complications Family history of Anesthesia Complications: Denies Family history of Malignant Hyperthermia: Denies - Medical History Cardiovascular: reports: Hypertension, High cholesterol Pulmonary: reports: Asthma Gastrointestinal: reports: GERD, Other Urinary: reports: Incontinence, Frequency Musculoskeletal: reports: Osteoarthritis Endocrine/Autoimmune: reports: Type 2 diabetes Skin: reports: None Psychosocial: reports: No issues indicated - Surgical History General: reports: Colonoscopy, EGD Eyes Ears Nose Throat (EENT): reports: Cataracts, Tonsil/Adenoidectomy Orthopedic: reports: Other Exam General: Alert, Oriented x3, Cooperative Dental: WNL Mouth Openin Fingerbreadth Neck Mobility: Normal Mallampati classification: II Thyromental Distance: 4-6 cm Respiratory: Lungs clear, Normal breath sounds, No respiratory distress Cardiovascular: Regular rate, Other (unable to hear murmur patient states she has been told exists) Neurological: Normal speech Mental/Cognitive Status: Alert/Oriented X3, Normal for patient Cognitive Status: Within normal limits Plan Anesthesia Type: Total IV Consent for Procedure(s) Verified and Reviewed: Yes Code Status: Attempt Resuscitation ASA classification: 2-Mild systemic disease Is this case an emergency?: No
[2021-05-03] MEDS ORDERED: LIDO GARGLE 30 ML BOTTLE ONE (09:00)
[2021-05-03] MEDS ORDERED: LIDO GARGLE 30 ML BOTTLE PO ONE (09:10)
[2021-05-03 09:47] VITALS: BP 125/66
--- NOTE | 2021-05-03 13:08 | ANESTHESIA POST OP EVALUATION ---
Anesthesia Post Eval - Post Anesthesia Eval Vitals: Last Vital Signs Temp 36.5 C 05/03/21 09:27 Pulse 73 05/03/21 09:47 Resp 14 05/03/21 09:47 BP 125/66 05/03/21 09:47 Pulse Ox 97 05/03/21 09:47 CV Function Including HR & BP: Stable Pain Control: Satisfactory Nausea & Vomiting: Negative Mental Status: Baseline Respiratory Status: Airway Patent Hydration Status: Satisfactory Anesthesia Complications: None
== END 2021-05-03 07:59 | disposition home or self-care (01) ==
LOC: SDS 07:58
PROVIDERS: ATTEND Surgery
PROC: 0DB58ZX Excision of Esophagus, Via Natural or Artificial Opening Endoscopic, Diagnostic (ICD-10-PCS; principal; 2021-05-03 09:00)
DX: K22.70 Barrett's esophagus without dysplasia (principal); K31.7 Polyp of stomach and duodenum; K44.9 Diaphragmatic hernia without obstruction or gangrene; K21.9 Gastro-esophageal reflux disease without esophagitis
CPT/HCPCS: 43239; A9270; J7120

== ENCOUNTER 2021-12-19 10:45 | Outpatient (CLI) | payer MEDICARE ==
--- NOTE | 2021-12-20 10:34 | DEXA Report ---
PROCEDURE: Dexa Spine and/or Hip INDICATIONS: OSTEOPENIA TECHNIQUE: Dual energy x-ray absorptiometry (DXA) was performed on a [employer] System. Regions measur ed are the AP Spine, femoral neck, and if needed forearm. COMPARISON: DEXA, 04/21/2018. FINDINGS: Lumbar Spine: Bone Mineral Density 1.074 g/cm/cm,T score -0.9, normal. Left Hip: Bone Mineral Density 0.833 g/cm/cm,T score -1.4, osteopenia. Left Femoral Neck: Bone Mineral Density 0.770 g/cm/cm, T score -1.9, osteopenia. (T score greater or equal to -1.0: NORMAL) (T score from -1.1 to -2.4: OSTEOPENIA) (T score less than or equal to -2.5 to: OSTEOPOROSIS) Impression: 1. Based on WHO criteria, the patient is osteopenic. 2. Compared to the last exam on 04/21/2018, her bone mineral density in spine has increased by 2.8%. Her bone mineral density in left hip is not significant changed. Patients with diagnosis of osteoporosis or osteopenia should have regular bone mineral density assess ment. For those eligible for Medicare, routine testing is allowed once every 2 years. Testing frequ ency can be increased for patients who have rapidly progressing disease or for those who are receivin g medical therapy to restore bone mass. Reviewed by: Ashley Curtis MD on 12/20/2021 10:32 AM PDT Approved by: Ashley Curtis MD on 12/20/2021 10:32 AM PDT Station ID: [id number]
== END 2021-12-19 10:46 | disposition home or self-care (01) ==
LOC: DI 10:45
PROVIDERS: ATTEND Nurse Practitioner Family
DX: M85.89 Other specified disorders of bone density and structure, multiple sites (principal)

== ENCOUNTER 2022-04-18 06:27 | Day surgery (SDC) | payer MEDICARE ==
[2022-04-18] MEDS ORDERED: LACTATED RINGERS 1,000 ML IV ONE ×2 (06:59→08:01)
[2022-04-18] MEDS ORDERED: PROPOFOL 200 MG/20 ML VIAL IVP ONE ×2 (07:03→07:50)
[2022-04-18] MEDS ORDERED: LIDOCAINE-PF 2% 10 ML AMP SUBQ ONE (07:03)
--- NOTE | 2022-04-18 07:11 | ANESTHESIA ---
Pre-Anesthesia VS, & Labs - Diagnosis gualberto's - Procedure EGD Vital Signs: Temp Pulse Resp BP Pulse Ox O2 Flow Rate 36.3 C L 73 16 141/70 H 99 04/18/22 06:43 04/18/22 06:43 04/18/22 06:43 04/18/22 06:43 04/18/22 06:43 Height: 5 ft 3 in Weight (kg): 71.9 kg Body Mass Index: 28.0 BMI Classification: Overweight - NPO >8 hours - Is Patient ?: No Home Medications and Allergies Iron,Carbonyl [Iron Chews] 45 mg PO 1-2XD 04/28/18 Metformin HCl [Metformin HCl ER] 500 mg PO DAILY 04/28/18 Pravastatin Sodium [Pravachol] 40 mg PO DAILY 04/28/18 lisinopriL [Zestril] 5 mg PO DAILY 04/28/18 Aspirin 81 mg PO DAILY 04/15/19 Ascorbic Acid [Vitamin C] 500 mg PO 04/20/20 Cholecalciferol (Vitamin D3) [Vitamin D3] 50 mcg PO 04/20/20 Fluticasone [Flonase] 1 sprays BIJAN DAILY 04/20/20 Magnesium 250 mg PO DAILY 04/20/20 Allergies/Adverse Reactions: Allergies Allergy/AdvReac Type Severity Reaction Status Date / Time codeine Allergy Hives Verified 04/17/22 12:53 Sulfa (Sulfonamide Allergy Hives Verified 04/17/22 12:53 Antibiotics) Anes History & Medical History - Anesthetic History Anesthesia Complications: reports: No previous complications - Medical History Cardiovascular: reports: Hypertension, High cholesterol Pulmonary: reports: Asthma Gastrointestinal: reports: GERD, Other Urinary: reports: Incontinence, Frequency Musculoskeletal: reports: Osteoarthritis Endocrine/Autoimmune: reports: Type 2 diabetes Skin: reports: None Smoking Status: Never smoker Psychosocial: reports: Alcohol (2 glasses wine a week) History of Cancer?: No - Surgical History General: reports: Colonoscopy, EGD Eyes Ears Nose Throat (EENT): reports: Cataracts, Tonsil/Adenoidectomy Orthopedic: reports: Other Exam General: Alert Dental: WNL Mouth Opening: Greater than 4 Fingerbreadths Mallampati classification: II Thyromental Distance: greater than 6 cm Respiratory: Lungs clear Cardiovascular: Regular rate Plan Anesthesia Type: Total IV Consent for Procedure(s) Verified and Reviewed: Yes Code Status: Attempt Resuscitation ASA classification: 2-Mild systemic disease Is this case an emergency?: No
[2022-04-18 09:08] VITALS: BP 138/88
--- NOTE | 2022-04-18 09:20 | ANESTHESIA POST OP EVALUATION ---
Anesthesia Post Eval - Post Anesthesia Eval Vitals: Last Vital Signs Temp 36 C L 04/18/22 08:45 Pulse 66 04/18/22 08:45 Resp 16 04/18/22 08:45 BP 138/88 H 04/18/22 08:45 Pulse Ox 97 04/18/22 08:45 O2 Flow Rate CV Function Including HR & BP: Stable Pain Control: Satisfactory Nausea & Vomiting: Negative Mental Status: Baseline Respiratory Status: Airway Patent Hydration Status: Satisfactory Anesthesia Complications: None
== END 2022-04-18 06:28 | disposition home or self-care (01) ==
LOC: SDS 06:27
PROVIDERS: ATTEND Surgery
PROC: 0DB58ZX Excision of Esophagus, Via Natural or Artificial Opening Endoscopic, Diagnostic (ICD-10-PCS; principal; 2022-04-18 07:30)
DX: K22.70 Barrett's esophagus without dysplasia (principal); K44.9 Diaphragmatic hernia without obstruction or gangrene; E10.9 Type 1 diabetes mellitus without complications; Z79.84 Long term (current) use of oral hypoglycemic drugs; I10 Essential (primary) hypertension; J45.909 Unspecified asthma, uncomplicated
CPT/HCPCS: 43239; J7120

== ENCOUNTER 2022-12-06 14:01 | Outpatient (CLI) | payer MEDICARE ==
--- NOTE | 2022-12-07 10:40 | Mammography Report ---
BILATERAL DIGITAL SCREENING MAMMOGRAM 3D/2D: 12/06/2022 CLINICAL: Routine screening. Comparison is made to exams dated: 04/24/2021 mammogram, 05/12/2020 mammogram, 04/21/2019 mammogram, 04/21/2018 mammogram, 04/09/2017 mammogram, and 03/29/2016 mammogram - [facility]. There are scattered areas of fibroglandular density in both breasts (category b / 25%-50% glandular t issue). There are benign calcifications in both breasts. No significant masses, calcifications, or other findings are seen in either breast. There has been no significant interval change. IMPRESSION: BENIGN There is no mammographic evidence of malignancy. A 1 year screening mammogram is recommended. Based on the Tyrer Cuzick model (a risk assessment model) the patients lifetime risk is 6.9% and her 10 year risk is 0.0%. According to the ACR, ACS, and NCCN guidelines, an annual breast MRI exam karrie g with mammogram is recommended if the patients lifetime risk is 20% or greater. This exam was interpreted at Station ID: [id number]. NOTE: For mammograms, a report in lay terms will be sent to the patient. Approximately 15% of breast malignancies will not be visualized mammographically. In the management of a palpable breast mass, a negative mammogram must not discourage biopsy of a clinically suspicious lesion. Electronically Signed By: Andrea ch/shana:12/06/2022 16:45:23 letter sent: No_Letter ACR BI-RADS Category 2: Benign Finding(s) 3342F PARENCHYMAL PATTERN: (A) - The breast(s) demonstrate(s) scattered fibroglandular densities. BI-RADS CATEGORY: (2) - 2 Mammogram [id number] 1 year screening LATERALITY: (B)
== END 2022-12-06 14:02 | disposition home or self-care (01) ==
LOC: DI 14:01
PROVIDERS: ATTEND Nurse Practitioner Family
DX: Z12.31 Encounter for screening mammogram for malignant neoplasm of breast (principal)

== ENCOUNTER 2023-03-24 14:51 | Outpatient (CLI) | payer MEDICARE ==
--- NOTE | 2023-03-24 16:29 | Ultrasound Report ---
PROCEDURE: Duplex Ext Veins Right INDICATIONS: RIGHT LEG SWELLING TECHNIQUE: Real-time imaging, as well as color and pulse Doppler interrogation, were performed of the lower extr emity deep veins from the inguinal ligament to the popliteal fossa. Attempted visualization of the ca lf veins was performed. COMPARISON: None. FINDINGS: The deep veins are normally compressible, and free of intraluminal thrombus. Color and pu lse Doppler demonstrate normal phasic intraluminal flow. There is normal augmentation response to di stal compression maneuver. Within the area of concern in the lateral aspect of the right calf, there is a heterogeneous mixed ec hogenicity focus in the area of swelling measuring 2.4 x 2.9 x 0.6 cm. IMPRESSION: 1.No deep venous thrombosis of the visualized lower extremity. 2.Within the area of interest in the right lateral anterior calf, there is a small fluid collection. Differential includes hematoma or abscess. Correlate with signs/symptoms of infection or recent traum a. Reviewed by: Andres Solis MD on 03/24/2023 4:28 PM PDT Approved by: Andres Solis MD on 03/24/2023 4:28 PM PDT Station ID: [id number]
== END 2023-03-24 14:52 | disposition home or self-care (01) ==
LOC: DI 14:51
PROVIDERS: ATTEND Registered Nurse
DX: R93.6 Abnormal findings on diagnostic imaging of limbs (principal)

== ENCOUNTER 2023-04-12 12:07 | Outpatient (CLI) | payer MEDICARE ==
[2023-04-12 12:43] LABS: CREATININE 0.8 mg/dL (0.6-1.3)
--- NOTE | 2023-04-12 16:10 | CT Report ---
PROCEDURE: ABDOMEN/PELVIS W INDICATIONS: ABD PAIN CONTRAST: 100ml omni 300 TECHNIQUE: After the administration of oral and intravenous contrast, 5 mm thick sections acquired from the diap hragms to the symphysis. 5 mm thick coronal and sagittal reformats were acquired. For radiation dos e reduction, the following was used: automated exposure control, adjustment of mA and/or kV accordin g to patient size. COMPARISON: None FINDINGS: Image quality: Excellent. Lung bases and heart: Mild bibasilar subsegmental atelectasis. The heart is normal in size. Liver: No solid mass. Gallbladder and biliary tree: No radiopaque stones or wall thickening. No biliary dilation. Spleen: No splenomegaly. Pancreas: No pancreatic ductal dilation. Adrenals: No adrenal nodule. Kidneys and ureters: No hydronephrosis. No renal cystic lesion which requires follow up. No solid mas s. Bowel and peritoneum: No bowel distension. No pathologic free fluid. Diverticulosis without evidence of diverticulitis. Lymph nodes: No central or retroperitoneal adenopathy. Vessels: No infrarenal aortic aneurysm. Atherosclerotic vascular calcifications. PELVIS Reproductive organs: Unremarkable. Bladder: Decompressed, limiting evaluation. Pelvic lymph nodes: No pelvic adenopathy by size criteria. Bones: No aggressive osseous abnormality. Degenerative changes of the spine. Grade I anterolisthesis of L4 on L5. Other: No significant ventral or inguinal hernia. Right posterior nerve stimulator device. IMPRESSION: 1.No cause for patient's symptoms is identified. No acute findings within the abdomen or pelvis. 2.Diverticulosis without evidence of acute diverticulitis. Reviewed by: Andres Benjamin MD on 04/12/2023 4:08 PM PDT Approved by: Andres Benjamin MD on 04/12/2023 4:08 PM PDT Station ID: [id number]
[2023-04-12] MEDS ORDERED: iohexoL-300 100 ML VIAL IVP ONE (19:14)
[2023-04-12] MEDS ORDERED: BARIUM SULFATE 1,900 ML BOTTLE RC ONE (19:14)
== END 2023-04-12 12:08 | disposition home or self-care (01) ==
LOC: LAB 12:07
PROVIDERS: ATTEND Registered Nurse
DX: R10.30 Lower abdominal pain, unspecified (principal); K57.90 Diverticulosis of intestine, part unspecified, without perforation or abscess without bleeding
CPT/HCPCS: 36415; 74177; 82565; A9270; Q9967

== ENCOUNTER 2024-01-01 15:01 | Outpatient (CLI) | payer MEDICARE ==
--- NOTE | 2024-01-01 18:24 | CT Report ---
PROCEDURE: Lower Extremity RT WO INDICATIONS: ARTHROPLASTY RIGHT ANKLE TECHNIQUE: Noncontrast 3-mm axial sections acquired from the distal tibial shaft to the talar dome, with coronal and sagittal reformats. For radiation dose reduction, the following was used: automated exposure c ontrol, adjustment of mA and/or kV according to patient size. COMPARISON: None. FINDINGS: Image quality: Excellent. Bones: Status post tibiotalar arthrodesis, in near-anatomic alignment. 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 No acute fracture or disl ocation. Small posterior calcaneus enthesophyte. Healed fracture of the distal tibia diaphysis. Healed fractur e of the distal fibula metadiaphysis. Soft tissues: The visualized flexor, extensor, peroneal, and the distal Achilles tendon are unremark able. Mild subcutaneous edema about the ankle. 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 Reviewed by: Shazia Xiong MD on 01/01/2024 6:23 PM PDT Approved by: Shazia Xiong MD on 01/01/2024 6:23 PM PDT Station ID: [id number]
== END 2024-01-01 15:02 | disposition home or self-care (01) ==
LOC: DI 15:01
PROVIDERS: ATTEND Podiatrist Foot & Ankle Surgery
DX: Z96.661 Presence of right artificial ankle joint (principal)